=== PATIENT | female | born 1980 | race African-American/Black ===

== ENCOUNTER 2020-12-06 00:31 | Emergency (ER) | payer MEDICAID, OTHER ==
[~2020-12-06] VITALS: Ht 157.5 cm; Wt 57.0 kg
[~2020-12-06 00:31] MED LIST: AMOX500T2; CLAR500T3; LANS30TA4
[2020-12-06] MEDS ORDERED: FAMOTIDINE 20MG/2ML VIAL IV STA (01:51)
[2020-12-06 02:25] LABS: BASOPHILS % 0.4 % (0.0-2.0); EOSINOPHILS % 0.7 % (0.0-5.0); HEMOGLOBIN. 12.2 g/dL (12.0-16.0); LYMPHOCYTES % 13.8 % (20.0-50.0); MEAN CORPUSCULAR HEMOGLOBIN 27.5 pg (28.0-32.0); MEAN CORPUSCULAR VOLUME 83.6 fL (81.0-99.0); MEAN PLATELET VOLUME 8.9 fl (7.4-10.4); MONOCYTES % 4.6 % (2.0-8.0); NEUTROPHILS % 80.5 % (40.0-76.0); PLATELET 212 x1000/uL (130-400); RED BLOOD CELL COUNT 4.43 mill/uL (4.2-5.4)
[2020-12-06 02:28] LABS: CLARITY URINE CLEAR (CLEAR); COLOR URINE YELLOW (YELLOW); KETONES URINE NEGATIVE (NEGATIVE); LEUKOCYTE ESTERASE URINE TRACE (NEGATIVE); NITRITE URINE NEGATIVE (NEGATIVE); OCCULT BLOOD URINE 1+ (NEGATIVE); PROTEIN URINE NEGATIVE (NEGATIVE); SPECIFIC GRAVITY URINE 1.014 (1.005-1.030); UROBILINOGEN URINE 0.2 E.U./dL (0.2-1.0)
[2020-12-06] MEDS ORDERED: VISCOUS LIDOCAINE 2% 15 ML UDC PO STA (02:31)
[2020-12-06] MEDS ORDERED: MAGNESIUM/ALUMINUM HYDROXIDE/SIMETHICONE 30ML UDC PO STA (02:31)
[2020-12-06 02:32] LABS: CHLORIDE 106 mEq/L (98-107)
[2020-12-06 02:34] LABS: PROTHROMBIN TIME 11.1 sec (9.6-11.0)
[2020-12-06 04:04] VITALS: BP 118/72
== END 2020-12-06 04:00 | disposition home or self-care (01) ==
LOC: ER 00:31
DX: R10.13 Epigastric pain (principal); R11.2 Nausea with vomiting, unspecified; Z88.2 Allergy status to sulfonamides
CPT/HCPCS: 36415; 80053; 81003; 83690; 85025; 85610; 93005; 96374; 99284; J3490; Z7610

== ENCOUNTER 2021-05-26 10:04 | Emergency (ER) | payer OTHER, MEDICAID ==
[~2021-05-26] VITALS: Ht 157.5 cm; Wt 57.0 kg
[2021-05-26 10:14] VITALS: BP 125/88
[2021-05-26] MEDS ORDERED: DIPHENHYDRAMINE 25MG CAPSULE PO ONE (10:45)
== END 2021-05-26 10:44 | disposition home or self-care (01) ==
LOC: ER 10:04
DX: T78.1XXA Other adverse food reactions, not elsewhere classified, initial encounter (principal); R22.0 Localized swelling, mass and lump, head; L50.0 Allergic urticaria; X58.XXXA Exposure to other specified factors, initial encounter
CPT/HCPCS: 99282; Q0163